=== PATIENT | female | born 1995 | race Asian ===

== ENCOUNTER 2019-02-19 08:36 | Emergency (ER) | payer MEDICAID, OTHER ==
[~2019-02-19] VITALS: Ht 157.5 cm; Wt 80.0 kg
[2019-02-19 10:25] VITALS: BP 117/58
== END 2019-02-19 10:36 | disposition home or self-care (01) ==
LOC: ED 10:30
DX: N30.01 Acute cystitis with hematuria (principal); N83.01 Follicular cyst of right ovary; M79.10 Myalgia, unspecified site
CPT/HCPCS: 36415; 76830; 80053; 81001; 83690; 84703; 85025; 87077; 87086; 87186; 96372; 99284; J1885; 96366; 96367; 99283

== ENCOUNTER 2019-07-19 19:26 | Emergency (ER) | payer MEDICAID ==
[~2019-07-19] VITALS: Ht 157.5 cm; Wt 77.7 kg
--- NOTE | 2019-07-19 19:55 | NUR ---
THIS IS A 23Y F THAT COMES IN W/ C/O NAUSEA AND VOMITING X2WKS, PER PT UNABLE TO KEEP WATER DOWN. PT STS LMP WAS 05/26/19 AND IS NOT CURRENTLY TAKING BIRTHCONTROL. PT CONNECTED TO MONITORING VSS, NADN, URINE SENT TO LAB. FAMILY AT BEDSIDE.
--- NOTE | 2019-07-19 20:03 | NUR ---
MD AT BEDSIDE TO ASSESS PT
[2019-07-19] MEDS ORDERED: ONDANSETRON 2MG/ML, 2ML ONE (20:16)
[2019-07-19 20:27] LABS: MICROSCOPIC INDICATED
[2019-07-19 20:28] LABS: CULTURE INDICATED? YES
--- NOTE | 2019-07-19 20:29 | NUR ---
IV STARTED, PT MEDICATED PER MAR. FAMILY AT BEDSIDE CALL LIGHT IN REACH
[2019-07-19 20:30] LABS: BASOPHILS # (AUTO) 0.01 x10^3/uL (0-0.1); BASOPHILS % (AUTO) 0 % (0-1); EOSINOPHILS % (AUTO) 1 % (1-7); LYMPHOCYTES # (AUTO) 1.79 x10^3/uL (1-3.4); LYMPHOCYTES % (AUTO) 19 % (22-44); MD NO; MEAN CORPUSCULAR HEMOGLOBIN 29.7 pg (27.0-34.8); MEAN CORPUSCULAR HGB CONC 33.7 g/dL (32.4-35.8); MEAN CORPUSCULAR VOLUME 88.1 fL (80-100); MEAN PLATELET VOLUME 8.6 fL (7.4-10.4); MONOCYTES # (AUTO) 0.43 x10^3/uL (0.2-0.8); MONOCYTES % (AUTO) 5 % (2-9); NEUTROPHILS # (AUTO) 7.13 x10^3/uL (1.8-6.8); NEUTROPHILS % (AUTO) 75 % (42-75); PLATELET COUNT 300 x10^3/uL (130-400); RED BLOOD COUNT 4.48 x10^6/uL (3.82-5.3); RED CELL DISTRIBUTION WIDTH 13.5 % (9.6-15.2)
[2019-07-19] MEDS ORDERED: SODIUM CHLORIDE 0.9% 1,000ML IVBOLUS ONE (20:30)
[2019-07-19] MEDS ORDERED: ONDANSETRON 2MG/ML, 2ML IVPush ONE (20:30)
[2019-07-19 20:34] LABS: ALANINE AMINOTRANSFERASE 24 U/L (12-78); ALBUMIN 3.5 g/dL (3.4-5.0); ANION GAP 7 mmol/L (5-15); CALCIUM 8.6 mg/dL (8.5-10.1); CHLORIDE 107 mmol/L (98-107); CREATININE 0.78 mg/dL (0.55-1.02)
[2019-07-19 20:52] LABS: ALKALINE PHOSPHATASE 53 U/L (45-117); BILIRUBIN,TOTAL 0.5 mg/dL (0.2-1.0)
[2019-07-19] MEDS ORDERED: SODIUM CHLORIDE 0.9% 1,000 ML IV ONE (21:00)
[2019-07-19] MEDS ORDERED: SODIUM CHLORIDE FLUSH 10ML SYR IVF ONE (21:00)
--- NOTE | 2019-07-19 21:16 | NUR ---
PT TO US
--- NOTE | 2019-07-19 22:00 | NUR ---
US CALLED TO FOLLOW UP ON READ
--- NOTE | 2019-07-19 22:01 | NUR ---
ALL RESULTS BACK AT THIS TIME CHART UP FOR RECHECK
[2019-07-19 22:47] VITALS: BP 95/37
--- NOTE | 2019-07-19 22:49 | NUR ---
UPDATED ON LOW BP. NO FURTHER ORDERS AT THIS TIME
== END 2019-07-19 23:26 | disposition home or self-care (01) ==
LOC: ED 21:20
DX: O23.11 Infections of bladder in pregnancy, first trimester (principal); O21.8 Other vomiting complicating pregnancy; O23.41 Unspecified infection of urinary tract in pregnancy, first trimester; O26.891 Other specified pregnancy related conditions, first trimester; Z3A.01 Less than 8 weeks gestation of pregnancy
CPT/HCPCS: 36415; 76801; 80053; 81001; 83690; 84702; 85025; 86901; 87077; 87086; 87186; 96361; 96374; 99284; J2405; J7030

== ENCOUNTER 2019-09-24 21:23 | Emergency (ER) | payer MEDICAID ==
[~2019-09-24] VITALS: Ht 162.6 cm; Wt 80.1 kg
[2019-09-24 21:29] VITALS: BP 107/56
--- NOTE | 2019-09-24 22:51 | NUR ---
PROOF CARRIER: UA COLLECTED AND SENT FROM TRIAGE
[2019-09-24 23:29] LABS: CULTURE INDICATED? YES; MICROSCOPIC INDICATED
--- NOTE | 2019-09-24 23:32 | NUR ---
NIL X 1 WHEN CALLED FOR ROOM.
--- NOTE | 2019-09-24 23:48 | NUR ---
NIL X 2 WHEN CALLED FOR ROOM.
--- NOTE | 2019-09-24 23:49 | NUR ---
ATTEMPTED TO CALL PT. VIA PHONE NUMBER LISTED ON FILE; PHONE RANG, THEN DISCONNECTED.
--- NOTE | 2019-09-25 00:09 | NUR ---
NIL X 3 WHEN CALLED FOR ROOM.
--- NOTE | 2019-09-25 00:10 | NUR ---
ATTEMPTED TO CALL PT. VIA TELEPHONE AGAIN; UNABLE TO CONTACT PT. TO UPDATE ABOUT URINE SAMPLE.
== END 2019-09-25 00:22 | disposition left against medical advice (07) ==
LOC: ED 09-25 00:11
DX: O26.892 Other specified pregnancy related conditions, second trimester (principal); M54.9 Dorsalgia, unspecified; R11.0 Nausea; Z53.21 Procedure and treatment not carried out due to patient leaving prior to being seen by health care provider
CPT/HCPCS: 81001; 87077; 87086; 87186